=== PATIENT | male | born 1975 | race Two or more races ===

== ENCOUNTER → 2023-03-19 11:23 | Outpatient (REF) | payer OTHER, SELFPAY ==
--- NOTE | 2023-03-19 12:34 | EEG.RPT ---
Electroencephalogram Report
Recording
Date of EE03/19/23
Type of EEG: Routine
Length of EEG recordin minutes
Patient Status: Outpatient
Recording Conditions: Awake and Drowsy
Hyperventilation Performed: Yes
Photic Stimulation Performed: Yes
Report
LESS THAN 1 HOUR EEG REPORT
METHODS:
A 21 channel digitized electroencephalogram (EEG) was performed using the 10/20 international system of electrode placement and one-lead of ECG recorded. Video was recorded. Study lasted 29 minutes.
ELECTROENCEPHALOGRAPHER IMPRESSION(S):
Quality of study
Good
Background
There was an unremarkable anterior-posterior voltage gradient of alpha frequency, a normal posterior dominant rhythm of 9-10 hz.
With eye opening the background activity changed to a low voltage mixture of frequencies.
There were no significant asymmetries of background activity noted.
Sleep
Drowsiness present
Photic Stimulation
No activation
Hyperventilation
No activation
ECG
Normal sinus rhythm
LESS THAN 1 HOUR EEG INTERPRETATION:
Unremarkable EEG for age
CLINICAL CORRELATION:
A normal EEG does not rule out a diagnosis of epilepsy.� If clinical suspicion for seizure persists, a prolonged recording may be warranted.
Clinical correlation is advised.
== END ==
LOC: RCS 11:23
PROVIDERS: ATTENDING PHYSICIAN Psychiatry & Neurology Neurology; FAMILY PHYSICIAN Family Medicine
DX: R41.82 Altered mental status, unspecified (principal)
CPT/HCPCS: 95816

== ENCOUNTER → 2023-04-03 07:59 | Outpatient (REF) | payer OTHER, SELFPAY ==
[2023-04-03 10:11] LABS: Microalbumin, Random Urine 1.1 mg/dl (0.6-1.7)
[2023-04-03 10:31] LABS: TSH 1.63 uIU/ml (0.47-4.68)
[2023-04-03 10:33] LABS: Erythrocyte Sed Rate 17 mm/hour (0-20)
[2023-04-03 11:06] LABS: Folate 10.6 ng/ml (2.76-20); Vitamin B12 205 pg/ml (239-931)
[2023-04-03 11:54] LABS: ALT (SGPT) 22 U/L (0-50); AST (SGOT) 31 U/L (17-59); Albumin 4.7 g/dl (3.5-5.0); Alkaline Phosphatase 93 U/L (38-126); Blood Urea Nitrogen 16 mg/dl (9-20); Calcium 9.7 mg/dl (8.4-10.2); Carbon Dioxide 22 mmol/L (22-30); Chloride 99 mmol/L (98-107); Glucose 113 mg/dl (70-99); HDL Cholesterol 52 mg/dl; LDL Cholesterol, Calculated 183 mg/dl; Potassium 4.8 mmol/L (3.5-5.1); Sodium 134 mmol/L (135-145); Total Cholesterol 298 mg/dl (50-199); Total Protein 8.1 g/dl (6.3-8.2); Triglyceride 319 mg/dl (10-149); Very Low Density Lipoprotein 63 mg/dl (0-30); eGFR > 60.00
[2023-04-03 12:13] LABS: Glycohemoglobin (HgbA1c) 9.1 % (4.0-5.6)
[2023-04-03 13:16] LABS: HIV Combo Negative (Negative)
[2023-04-03 14:49] LABS: Syphilis/T. pallidum Ab Reflex Negative (Negative)
== END ==
LOC: REG 07:59
PROVIDERS: ATTENDING PHYSICIAN Psychiatry & Neurology Neurology; FAMILY PHYSICIAN Family Medicine; REFERRING PHYSICIAN Internal Medicine Endocrinology, Diabetes & Metabolism
DX: R41.82 Altered mental status, unspecified (principal); E11.65 Type 2 diabetes mellitus with hyperglycemia
CPT/HCPCS: 36415; 80053; 80061; 82043; 82570; 82607; 82746; 83036; 84443; 85652; 86140; 86780; 87389

== ENCOUNTER → 2023-05-03 11:53 | Outpatient (REF) | payer OTHER, SELFPAY ==
[2023-05-03 12:31] LABS: % Basophils 0.5 % (0-2); % Eosinophils 0.8 % (0-6); % Immature Granulocytes 0.5 % (0-0.5); % Lymphocytes 37.7 % (20.5-51.1); % Neutrophils 46.5 % (42.2-75.2); Absolute Lymphocytes 1.4 10^3/uL (1.2-3.4); Absolute Monocytes 0.5 10^3/uL (0.1-0.6); Absolute Neutrophils 1.7 10^3/uL (1.4-6.5); Hematocrit 46.1 % (39.0-52.0); Hemoglobin 15.4 g/dL (13.0-18.0); Mean Corp Hgb Conc. 33.4 g/dL (33.0-37.0); Mean Corpuscular Hgb 28.1 pg (27.0-31.0); Nucleated Red Blood Cells % 0 % (-); Platelet Count 227 10^3/uL (130-400); Red Blood Cell Count 5.49 10^6/uL (4.70-6.10); Red Cell Dist. Width 13.1 % (11.5-14.5); White Blood Cell Count 3.7 10^3/uL (4.8-10.8)
[2023-05-03 14:37] LABS: Erythrocyte Sed Rate 9 mm/hour (0-20)
== END ==
LOC: REG 11:53
PROVIDERS: ATTENDING PHYSICIAN Ophthalmology
DX: M31.6 Other giant cell arteritis (principal)
CPT/HCPCS: 36415; 85025; 85652; 86140

== ENCOUNTER → 2023-10-17 08:51 | Outpatient (REF) | payer OTHER, SELFPAY ==
[2023-10-17 09:57] LABS: % Basophils 0.5 % (0-2); % Immature Granulocytes 0.5 % (0-0.5); % Lymphocytes 45.8 % (20.5-51.1); % Monocytes 13.6 % (1.7-9.3); % Neutrophils 37.6 % (42.2-75.2); Absolute Eosinophils 0.1 10^3/uL (0-0.7); Absolute Lymphocytes 1.8 10^3/uL (1.2-3.4); Absolute Monocytes 0.5 10^3/uL (0.1-0.6); Absolute Neutrophils 1.5 10^3/uL (1.4-6.5); Hemoglobin 15.3 g/dL (13.0-18.0); Mean Corp Hgb Conc. 33.3 g/dL (33.0-37.0); Mean Corpuscular Hgb 28.1 pg (27.0-31.0); Mean Corpuscular Volume 84.4 fL (80.0-94.0); Mean Platelet Volume 10.5 fL (7.4-10.4); Nucleated Red Blood Cells % 0 % (-); Platelet Count 243 10^3/uL (130-400); Red Blood Cell Count 5.45 10^6/uL (4.70-6.10); Red Cell Dist. Width 13.5 % (11.5-14.5); White Blood Cell Count 3.9 10^3/uL (4.8-10.8)
[2023-10-17 10:42] LABS: Glycohemoglobin (HgbA1c) 8.3 % (4.0-5.6)
[2023-10-17 10:50] LABS: ALT (SGPT) 22 U/L (0-50); AST (SGOT) 26 U/L (17-59); Albumin 4.7 g/dl (3.5-5.0); Alkaline Phosphatase 102 U/L (38-126); Blood Urea Nitrogen 11 mg/dl (9-20); Calcium 9.9 mg/dl (8.4-10.2); Carbon Dioxide 27 mmol/L (22-30); Chloride 98 mmol/L (98-107); Glucose 191 mg/dl (70-99); HDL Cholesterol 65 mg/dl; Potassium 4.7 mmol/L (3.5-5.1); Sodium 139 mmol/L (135-145); Total Bilirubin 0.6 mg/dl (0.2-1.3); Total Protein 7.4 g/dl (6.3-8.2); Triglyceride 328 mg/dl (10-149); Very Low Density Lipoprotein 65 mg/dl (0-30); eGFR > 60.00
[2023-10-17 11:01] LABS: LDL Cholesterol, Calculated 195 mg/dl; Total Cholesterol 325 mg/dl (50-199)
[2023-10-17 11:16] LABS: Vitamin D, 25-OH*** 30.9 ng/mL (30-80)
[2023-10-17 11:31] LABS: Microalbumin, Random Urine 1.1 mg/dl (0.6-1.7)
[2023-10-17 11:33] LABS: Microalbumin/creatinine Ratio 19.3 mg/g
[2023-10-17 11:49] LABS: Vitamin B12 251 pg/ml (239-931)
== END ==
LOC: REG 08:51
PROVIDERS: ATTENDING PHYSICIAN Internal Medicine Endocrinology, Diabetes & Metabolism; FAMILY PHYSICIAN Family Medicine
DX: G62.9 Polyneuropathy, unspecified (principal); E11.9 Type 2 diabetes mellitus without complications; E78.2 Mixed hyperlipidemia; R68.89 Other general symptoms and signs; E53.8 Deficiency of other specified B group vitamins; E55.9 Vitamin D deficiency, unspecified; E11.65 Type 2 diabetes mellitus with hyperglycemia
CPT/HCPCS: 36415; 80053; 80061; 82043; 82306; 82570; 82607; 83036; 85025

== ENCOUNTER → 2024-07-30 09:26 | Outpatient (REF) | payer OTHER, SELFPAY ==
[2024-07-30 10:49] LABS: ALT (SGPT) 19 U/L (0-50); AST (SGOT) 23 U/L (17-59); Albumin 4.4 g/dl (3.5-5.0); Alkaline Phosphatase 93 U/L (38-126); Blood Urea Nitrogen 14 mg/dl (9-20); Calcium 9.9 mg/dl (8.4-10.2); Carbon Dioxide 26 mmol/L (22-30); Chloride 103 mmol/L (98-107); Glucose 160 mg/dl (70-99); HDL Cholesterol 59 mg/dl; LDL Cholesterol, Calculated 167 mg/dl; Potassium 4.4 mmol/L (3.5-5.1); Sodium 141 mmol/L (135-145); Total Cholesterol 302 mg/dl (50-199); Total Protein 7.4 g/dl (6.3-8.2); Triglyceride 384 mg/dl (10-149); Very Low Density Lipoprotein 76 mg/dl (0-30); eGFR > 60.00
[2024-07-30 11:49] LABS: Glycohemoglobin (HgbA1c) 8.8 % (4.0-5.6)
== END ==
LOC: REG 09:26
PROVIDERS: ATTENDING PHYSICIAN Internal Medicine Endocrinology, Diabetes & Metabolism; FAMILY PHYSICIAN Family Medicine; REFERRING PHYSICIAN Dermatology
DX: E11.65 Type 2 diabetes mellitus with hyperglycemia (principal)
CPT/HCPCS: 36415; 80053; 80061; 83036

== ENCOUNTER → 2024-12-26 17:13 | Outpatient (REF) | payer OTHER, SELFPAY | LOC: PAVMRI 17:13 | PROVIDERS: ATTENDING PHYSICIAN Physician Assistant Surgical; FAMILY PHYSICIAN Family Medicine | DX: M53.3 Sacrococcygeal disorders, not elsewhere classified (principal); M54.50 Low back pain, unspecified | CPT/HCPCS: 72148 ==